=== PATIENT | female | born 1945 | race Caucasian/White ===

== ENCOUNTER 2018-02-16 10:39 | Emergency (ER) | payer OTHER ==
[2018-02-16 10:44] VITALS: BMI 28.3
--- NOTE | 2018-02-16 11:00 | PDOC ---
History of Present Illness - General Chief Complaint: Constipation Stated Complaint: BACK PAIN Time Seen by Provider: 02/16/18 10:54 History Source: Patient Exam Limitations: No Limitations - History of Present Illness Initial Comments: 02/16/18 11:18 72 year old female with PMH bronchitis, HTN presenting to ED for low back pain associated with constipation and generalized weakness. She states her pain radiates to her abdomen, is located "all over" her low back. She denies fever, chills, nausea, vomiting, diarrhea, chest pain, SOB, headache, dizziness, dysuria, limb weakness, numbness, tingling. PCP - Nellie Wade Past History - Past Medical History Allergies/Adverse Reactions: Allergies Allergy/AdvReac Type Severity Reaction Status Date / Time No Known Drug Allergies Allergy Verified 02/16/18 10:44 Home Medications: Ambulatory Orders Losartan Potassium 50 mg PO DAILY 08/25/15 Cyclobenzaprine HCl [Flexeril 10 mg] 10 mg PO BID PRN 02/16/18 Naproxen [Naprosyn -] 500 mg PO BID #14 tablet 02/16/18 Anemia: No Asthma: No Cancer: No Cardiac Disorders: No CVA: No COPD: No (HX BRONCHITIS) CHF: No Dementia: No Diabetes: No GI Disorders: No Disorders: No HTN: Yes Hypercholesterolemia: No Liver Disease: No Seizures: No Thyroid Disease: No - Surgical History Orthopedic Surgery: Yes (SHOULDER RIGHT SX) - Immunization History Immunization Up to Date: Yes - Suicide/Smoking/Psychosocial Hx Smoking History: Never smoked Have you smoked in the past 12 months: No Information on smoking cessation initiated: No Hx Alcohol Use: No Drug/Substance Use Hx: No Substance Use Type: None Hx Substance Use Treatment: No *Physical Exam - Vital Signs Last Vital Signs Temp Pulse Resp BP Pulse Ox 97.7 F 98 H 20 142/78 98 02/16/18 10:41 02/16/18 10:41 02/16/18 10:41 02/16/18 10:41 02/16/18 10:41 - Physical Exam Comments: 02/16/18 12:17 Appearance: appears in pain. sitting up in bed. HEENT: head is normocephalic, atraumatic. EOMI. PERRLA. Neck: supple. Full ROM. no mid-line c-spine tenderness. Heart: regular rhythm. no murmurs, rubs or gallops. No pericardial friction rub. Lungs: clear to auscultation bilaterally. no crackles, rhonchi or wheezing. no stridor. Abdomen: soft, nontender. normal bowel sounds. no rebound, guarding, masses. Back: no t-spine or l-spine midline tenderness. no paraspinal t-spine or L- spine tenderness. Pt unable to lie down to tolerate straight leg testing. Extremities: Peripheral pulses intact and equal. No lower extremity edema. Neurological: Alert. Oriented x3. CN 2-12 intact. 5/5 strength all extremities. Full sensation intact all extremities and bilateral face. Finger to nose normal. 02/16/18 13:29 Rectal examination performed. Pt has good rectal tone. Patellar reflex normal bilaterally. Gait normal. Walks unassisted. ED Treatment Course - LABORATORY CBC & Chemistry Diagram: 02/16/18 12:05 02/16/18 12:05 Medical Decision Making - Medical Decision Making 02/16/18 12:16 72 year old female with PMH bronchitic, HTN presenting to ED for low back pain associated with constipation and generalized weakness. Initial Vital Signs Temp Pulse Resp BP Pulse Ox 97.7 F 98 H 20 142/78 98 02/16/18 10:41 02/16/18 10:41 02/16/18 10:41 02/16/18 10:41 02/16/18 10:41 Pending labs, CT t-spine and CT L-spine. 02/16/18 13:40 UA - trace LE 2+ WBC CBC - normal CMP - normal ESR - normal CRP - 1.2 Pt reassessed, states her pain is improving. Pt is now able to walk unassisted. Gait normal. Pending spine CT 02/16/18 14:06 Ct spine - Moderate recent compression fracture to T12. Paging pt's ortho Dr. Lynch, Dr. Khan is covering. 02/16/18 15:04 Second page sent to Dr. Khan, who is covering for Dr. Lynch. 02/16/18 15:09 Pt will be discharged with pain control, follow up instructions, and strict return precautions. *DC/Admit/Observation/Transfer Diagnosis at time of Disposition: Back pain - Discharge Dispostion Disposition: HOME Condition at time of disposition: Improved Decision to Admit order: No - Prescriptions Prescriptions: Naproxen [Naprosyn -] 500 mg PO BID #14 tablet - Referrals Referrals: Miranda Wade MD [Primary Care Provider] - - Patient Instructions Printed Discharge Instructions: DI for Vertebral Fracture Additional Instructions: You were seen today for back pain. Your CT of your spine revealed a compression fracture. You were given intramuscular Toradol - an antinflammatory - for your pain. I have written a prescription for Naproxen - an antiflammatory - and sent it to your pharmacy ([facility]). Take 1 pill every 12 hours. I have also given you a prescription for Tramadol. Please follow up with your Orthopedic doctor, Dr. Lynch, within 7 days. Call his office today and make an appointment. Bring the paperwork given to you today with you. Your care is not complete until you follow up. Keep your appointment for your MRI. Please follow up with your Primary Care Physician, within 7 days. Call their office today and make an appointment. Bring the paperwork given to you today with you. Your care is not complete until you follow up. Return to the Emergency Department for increasing pain, loss of control of bowel or bladder, extremity weakness, fever, numbness, or any other new, worsening or concerning symptoms. - Post Discharge Activity
[2018-02-16] MEDS ORDERED: KETOROLAC TROMETHAMINE 60 MG/2 ML VIAL IM ONE (11:17)
[2018-02-16] MEDS ORDERED: KETOROLAC TROMETHAMINE 60 MG/2 ML VIAL ONE (11:27)
--- NOTE | 2018-02-16 12:03 | PDOC ---
Attending Attestation - Resident Resident Name: Lluvia Peterson - ED Attending Attestation I have performed the following: I have examined & evaluated the patient, The case was reviewed & discussed with the resident, I agree w/resident's findings & plan, Exceptions are as noted - HPI HPI: 02/16/18 12:09 The patient is a 72 year old female with a past medical history of hypertension , back pain who presents to the emergency department for evaluation of lower back pain. The patient reports a 5 day history of worsening diffuse lower back pain radiating around to her abdomen b/l. Pt reports associated symptoms of a 5 day history of constipation. She states her back pain began 3 weeks ago after episodes of coughing. Denies trauma or falls. Pt denies heavy lifting but her sister states that she often pushes herself by carrying too much. Pt was prescribed tylenol and flexerill after seeing urgent care 2 days ago, she states these medications have not provided relief. Pt able to ambulate but states her back hurts more 2/2 ambulation. Pt has appt for MRI scheduled with Dr. Lynch in 3 days. The patient denies numbness, weakness, or tingling of extremities, urine retention or incontinence, chest pain, shortness of breath, headache, and dizziness. Denies fever, chills, nausea, vomiting, diarrhea, dysuria, and hematuria. - Physicial Exam PE: 02/16/18 12:23 GENERAL: Awake, alert, and fully oriented, appears uncomfortable HEAD: No signs of trauma EYES: PERRLA, EOMI, sclera anicteric, conjunctiva clear ENT: Auricles normal inspection, hearing grossly normal, nares patent, oropharynx clear without exudates. Moist mucosa NECK: Normal ROM, supple, no lymphadenopathy, JVD, or masses LUNGS: Breath sounds equal, clear to auscultation bilaterally. No wheezes, and no crackles HEART: Regular rate and rhythm, normal S1 and S2, no murmurs, rubs or gallops ABDOMEN: Soft, nontender, normoactive bowel sounds. No guarding, no rebound. No masses EXTREMITIES: Normal range of motion, no edema. No clubbing or cyanosis. No cords, erythema, or tenderness BACK: +midline thoracic and lumbar ttp, no cervical ttp. No deformities. No paraspinal ttp. NEUROLOGICAL: Normal speech, cranial nerves intact, 5/5 strength in all 4 extremities, normal sensation to light touch in all 4 extremities, normal cerebellar exam, gait deferred, normal reflexes. Rectal tone normal SKIN: Warm, Dry, normal turgor, no rashes or lesions noted. - Medical Decision Making 02/16/18 12:01 72yo F hx HTN, chronic back pain presents to the ED with 3 weeks of acute atraumatic back pain after coughing as well as 3 days of constipation. Vitals wnl. Exam with midline thoracic and lumbar back pain. Pt is neurologically intact, however rectal tone/gait pending. Plan: -labs -UA -CT T/LS spine -pain control -reassess 02/16/18 13:32 rectal tone wnl reflexes wnl Pt is neuro intact CT done and pending Pain improved with toradol 02/16/18 15:07 CT with compression fracture of T12 Pt remains neuro intact, ambulating in ED with steady gait Has f/u with Dr. Lynch Attempted to call to discuss case, Dr. Khan covering, awaiting call back 02/16/18 15:42 Pt requests Dc home given naproxen for pain control and tramadol for breakthrough pain pt lives alone so instructed her to take tramadol only at night before sleep in case it makes her dizzy or drowsy Pt and family express understanding I discussed the physical exam findings, ancillary test results and final diagnoses with the patient. I answered all of the patient's questions. The patient was satisfied with the care received and felt comfortable with the discharge plan and treatment plan. The patient will call their primary care physician within 24 hours to arrange follow-up and will return to the Emergency Department with any new, persistent or worsening symptoms.
[2018-02-16 12:34] LABS: BASO % 0.1 % (0-2.0); EOS % 0.3 % (0-4.5); HEMATOCRIT 44.7 % (32.4-45.2); HEMOGLOBIN 14.9 GM/dL (10.7-15.3); LYMPH % 9.5 % (8-40); MCH 29.6 pg (25.7-33.7); MCHC 33.3 g/dl (32.0-36.0); MEAN CELL VOLUME 88.7 fl (80-96); MEAN PLT VOLUME 8.7 fl (7.5-11.1); MONO % 3.2 % (3.8-10.2); NEUT % 86.9 % (42.8-82.8); PLATELET COUNT 235 K/MM3 (134-434); RBC 5.03 M/mm3 (3.60-5.2); WHITE BLOOD COUNT 10.8 K/mm3 (4.0-10.0)
[2018-02-16 12:46] LABS: URINE APPEARANCE CLEAR; URINE BILIRUBIN NEGATIVE (<2.0 mg/dL); URINE COLOR LTYELLOW; URINE GLUCOSE (UA) NEGATIVE (NEGATIVE); URINE KETONE NEGATIVE (NEGATIVE); URINE LEUK ESTERASE TRACE (NEGATIVE); URINE NITRITE NEGATIVE (NEGATIVE); URINE PROTEIN NEGATIVE (NEGATIVE); URINE UROBILINOGEN NEGATIVE mg/dL (0.2-1.0)
[2018-02-16 12:55] LABS: EPI CELLS RARE /HPF (FEW); URINE MUCUS RARE
[2018-02-16 12:55] LABS: ALBUMIN 3.5 g/dl (3.4-5.0); ANION GAP 10 (8-16); BILIRUBIN,TOTAL 0.6 mg/dL (0.2-1.0); BLOOD UREA NITROGEN 21 mg/dL (7-18); CALCIUM 9.1 mg/dL (8.5-10.1); CHLORIDE 106 mmol/L (98-107); CO2 26 mmol/L (21-32); CREATININE 0.9 mg/dL (0.55-1.02); GLUCOSE,RANDOM 106 mg/dL (74-106); POTASSIUM 4.7 mmol/L (3.5-5.1); SGOT/AST 12 U/L (15-37); SGPT/ALT 28 U/L (12-78); SODIUM 142 mmol/L (136-145); TOT PROT 7.1 g/dl (6.4-8.2)
[2018-02-16 12:56] LABS: ALK PHOS 110 U/L (45-117)
[2018-02-16 13:38] LABS: ERYTHROCYTE SEDIMENTATION RATE 8 mm/hr (0-30)
[2018-02-16 15:53] VITALS: BP 140/90; PULSE 88; TEMP 98.2
== END 2018-02-16 15:50 | disposition home or self-care (01) ==
LOC: JER 10:39
PROC: 3E0233Z Introduction of Anti-inflammatory into Muscle, Percutaneous Approach (ICD-10-PCS; principal; 2018-02-16)
DX: M54.5 Low back pain (principal); I10 Essential (primary) hypertension
CPT/HCPCS: 36415; 72128-TC; 72131-TC; 80053; 81003; 81015; 85025; 85651; 86140; 87086; 99282-25

== ENCOUNTER 2021-12-15 04:11 | Day surgery (SDC) | payer OTHER ==
[2021-12-14 11:50] VITALS: BMI 28.3
[2021-12-15] MEDS ORDERED: LIDOCAINE HCL/PF 1% SDV 5ML VIAL ONE (07:10)
[2021-12-15] MEDS ORDERED: LIDOCAINE HCL/PF 2% SDV 5ML VIAL ONE (07:17)
[2021-12-15] MEDS ORDERED: LIDOCAINE HCL 1%, 10 MG/ML (50 mL VIAL) NR ONE (12:43)
[2021-12-15 13:17] VITALS: BP 148/71; PULSE 69; TEMP 97.5
== END 2021-12-15 13:57 | disposition home or self-care (01) ==
LOC: JASU-SURG 04:11
PROVIDERS: ATTEND Pain Medicine Pain Medicine
PROC: 01HY3MZ Insertion of Neurostimulator Lead into Peripheral Nerve, Percutaneous Approach (ICD-10-PCS; principal; 2021-12-15 13:00)
DX: G89.4 Chronic pain syndrome (principal); B02.29 Other postherpetic nervous system involvement; I10 Essential (primary) hypertension
CPT/HCPCS: 64555; C1897; 76000-TC-FY

== ENCOUNTER 2022-09-06 04:32 | Day surgery (SDC) | payer OTHER ==
[2022-09-03 12:03] VITALS: BMI 27.8
[2022-09-06 09:21] VITALS: TEMP 98
[2022-09-06 12:12] VITALS: BP 127/65; PULSE 68; RESP 16
== END 2022-09-06 11:42 | disposition home or self-care (01) ==
LOC: JASU-ENDO 04:32
PROVIDERS: ATTEND Internal Medicine Gastroenterology
PROC: 0DB98ZX Excision of Duodenum, Via Natural or Artificial Opening Endoscopic, Diagnostic (ICD-10-PCS; 2022-09-06)
PROC: 0DB78ZX Excision of Stomach, Pylorus, Via Natural or Artificial Opening Endoscopic, Diagnostic (ICD-10-PCS; 2022-09-06)
PROC: 0DB28ZX Excision of Middle Esophagus, Via Natural or Artificial Opening Endoscopic, Diagnostic (ICD-10-PCS; 2022-09-06)
PROC: 0DB38ZX Excision of Lower Esophagus, Via Natural or Artificial Opening Endoscopic, Diagnostic (ICD-10-PCS; 2022-09-06)
PROC: 0DJD8ZZ Inspection of Lower Intestinal Tract, Via Natural or Artificial Opening Endoscopic (ICD-10-PCS; principal; 2022-09-06 10:00)
DX: Z12.11 Encounter for screening for malignant neoplasm of colon (principal); K64.8 Other hemorrhoids; K44.9 Diaphragmatic hernia without obstruction or gangrene; K21.00 Gastro-esophageal reflux disease with esophagitis, without bleeding; K29.70 Gastritis, unspecified, without bleeding; I10 Essential (primary) hypertension
CPT/HCPCS: 43239; G0121; 88305-TC; 88342-TC

== ENCOUNTER 2022-10-20 04:07 | Day surgery (SDC) | payer OTHER ==
[2022-10-19 12:42] VITALS: BMI 28.3
[2022-10-20] MEDS ORDERED: BUPIVACAINE HCL/PF 0.5% (5MG/ML) 10 ML VIAL ONE (11:27)
[2022-10-20] MEDS ORDERED: PROPOFOL 20 ML ONE ×2 (11:34→12:36)
[2022-10-20] MEDS ORDERED: ceFAZolin SODIUM 1 GM VIAL IVPB ONE (11:51)
[2022-10-20] MEDS ORDERED: oxyCODONE HCL 5 MG TABLET PO PRN (13:11)
[2022-10-20] MEDS ORDERED: ONDANSETRON 4 MG/2 ML VIAL IVPUSH PRN (13:11)
[2022-10-20] MEDS ORDERED: ACETAMINOPHEN 325 MG TABLET (FP) PO PRN (13:11)
[2022-10-20 14:12] VITALS: RESP 18
[2022-10-20 14:44] VITALS: TEMP 97.8
[2022-10-20 16:49] VITALS: BP 126/64; PULSE 71
== END 2022-10-20 16:10 | disposition home or self-care (01) ==
LOC: JASU-SURG 04:07
PROVIDERS: ATTEND Surgery
PROC: 06DY0ZZ Extraction of Lower Vein, Open Approach (ICD-10-PCS; principal; 2022-10-20 11:30)
DX: I83.812 Varicose veins of left lower extremity with pain (principal)
CPT/HCPCS: 88304-TC; 94760

== ENCOUNTER 2023-03-15 05:23 | Day surgery (SDC) | payer OTHER ==
[2023-03-02 14:11] VITALS: BMI 28.3
[~2023-03-15 05:23] MED LIST: ACETAMINOPHEN 500 MG TABLET (FP) PO PRN
[2023-03-15] MEDS ORDERED: LIDOCAINE HCL/PF 2% SDV 5ML VIAL ONE (07:22)
[2023-03-15] MEDS ORDERED: ACETAMINOPHEN 500 MG TABLET (FP) PO PRN (09:54)
[2023-03-15 10:29] VITALS: RESP 18
[2023-03-15] MEDS ORDERED: PROPOFOL 20 ML ONE (13:44)
[2023-03-15] MEDS ORDERED: MIDAZOLAM HCL 2 MG/2 ML SINGLE DOSE VIAL ONE (13:44)
[2023-03-15] MEDS ORDERED: LIDOCAINE HCL/PF 2% SDV 5ML VIAL INF ONE ×2 (13:57)
[2023-03-15] MEDS ORDERED: LIDOCAINE HCL 1% PRESERVATIVE FREE - 30ML VIAL INF ONE ×2 (13:58)
[2023-03-15 18:44] VITALS: BP 142/60; PULSE 66; TEMP 97.9
== END 2023-03-15 16:05 | disposition home or self-care (01) ==
LOC: JASU-SURG 05:23
PROVIDERS: ATTEND Pain Medicine Pain Medicine
PROC: 01HY3MZ Insertion of Neurostimulator Lead into Peripheral Nerve, Percutaneous Approach (ICD-10-PCS; principal; 2023-03-15 12:15)
DX: M54.14 Radiculopathy, thoracic region (principal); G89.4 Chronic pain syndrome
CPT/HCPCS: 63650; C1778; 76000-TC-FY; C1889; C1897